=== PATIENT | female | born 1980 | race African-American/Black ===

== ENCOUNTER 2018-05-02 17:46 | Emergency (ER) | payer SELFPAY ==
[2018-05-02 19:36] LABS: Absolute Lymphocytes (CBC) 2.8 K/uL (0.7-4.9); Absolute Monocytes 0.5 K/uL (0.1-1.3); Absolute Neutrophil 3.8 K/uL (1.8-8.0); Basophils % 0.8 % (0-1.3); Eosinophils % 1.3 % (0-4.4); Hematocrit 36.9 % (36.0-45.0); Lymphocytes % 38.8 % (15.3-44.8); MPV 8.4 fL (7.6-11.3); Monocytes % 7.5 % (3.3-12.3); RBC Red Blood Cell Count 3.44 M/uL (3.86-4.86)
[2018-05-02 19:52] LABS: BUN Blood Urea Nitrogen 13 mg/dL (7-18); Bicarbonate 22 mmol/L (21-32); Glucose Level 78 mg/dL (74-106); Potassium 3.5 mmol/L (3.5-5.1); Sodium Level 142 mmol/L (136-145)
[2018-05-02 20:21] LABS: Blood Morphology Comment NOTED (NOT SEEN); Macrocytosis 1+; Platelet Estimate ADEQ; Platelets, Giant FEW; Urine White Blood Cell Casts OK
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
[2018-05-02 20:31] LABS: Urine Blood 2+ (NEG); Urine Glucose NEGATIVE (NEG); Urine Protein NEGATIVE (NEG); Urine Specific Gravity <1.005 (1.005-1.030); Urine pH 5.5 (5.0-7.0)
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
[2018-05-03] MEDS ORDERED: IBUPROFEN 400 MG TAB ONE (00:37)
[2018-05-03] MEDS ORDERED: IBUPROFEN 200 MG TAB PO ONE (00:37)
== END 2018-05-03 07:00 | disposition home or self-care (01) ==
LOC: ER 17:46
DX: Z04.71 Encounter for examination and observation following alleged adult physical abuse (principal); R10.2 Pelvic and perineal pain; S00.83XA Contusion of other part of head, initial encounter; Y04.2XXA Assault by strike against or bumped into by another person, initial encounter; Z72.0 Tobacco use; Z59.0 Homelessness
CPT/HCPCS: 36415; 70450; 70486; 71260; 72125; 74177; 76377; 80048; 81003; 85025; 86850; 86900; 86901; 96360; 96361; 99285; Q9967